=== PATIENT | male | born 1975 | race Caucasian/White ===

== ENCOUNTER 2019-11-29 08:15 | Emergency (ER) | payer SELFPAY ==
[2019-11-29] MEDS ORDERED: Ibuprofen TAB* 800 MG PO ONE (08:38)
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
[2019-11-29 09:05] VITALS: BP 110/75
== END 2019-11-29 09:04 | disposition home or self-care (01) ==
LOC: ED 08:15
DX: S13.9XXA Sprain of joints and ligaments of unspecified parts of neck, initial encounter (principal); S39.012A Strain of muscle, fascia and tendon of lower back, initial encounter; Y04.2XXA Assault by strike against or bumped into by another person, initial encounter; Y93.89 Activity, other specified; Y92.149 Unspecified place in prison as the place of occurrence of the external cause; Y99.0 Civilian activity done for income or pay; Z91.030 Bee allergy status
CPT/HCPCS: 99282; A9270-GY